=== PATIENT | female | born 1945 | race Caucasian/White ===

== ENCOUNTER → 2024-04-12 08:25 | Outpatient (CLI) | payer OTHER, SELFPAY ==
[2024-04-12 09:56] LABS: Alanine Aminotransferase 16 IU/L (<35); Albumin 4.2 g/dL (3.5-5.0); Albumin Globulin Ratio 1.9 (1.0-2.8); Alkaline Phosphatase 74 U/L (38-126); Aspartate Aminotransferase 25 IU/L (14-36); BUN Creatinine Ratio 26.9 (6-22); Blood Urea Nitrogen 18 mg/dL (7-17); Calcium 9.5 mg/dL (8.4-10.2); Carbon Dioxide 31 mmol/L (22-32); Chloride 96 mmol/L (98-107); Cholesterol 210 mg/dL (140-199); Estimated Glomerular Filt Rate > 60 mL/min (>60); Globulin 2.2 g/dL (1.7-4.1); Glucose 106 mg/dL (80-110); HDL Cholesterol 96 mg/dL (40-60); HEMOLYSIS < 15 (0-50); LDL Cholesterol Calculated 100 mg/dL (<100); Potassium 4.6 mmol/L (3.4-5.1); Sodium 131 mmol/L (137-145); Total Protein 6.4 g/dL (6.3-8.2); Triglycerides 69 mg/dL (35-150)
== END ==
PROVIDERS: PCP Student in an Organized Health Care Education/Training Program; Referring Provider Student in an Organized Health Care Education/Training Program; Visit Provider Student in an Organized Health Care Education/Training Program
DX: I10 Essential (primary) hypertension (principal); H35.30 Unspecified macular degeneration
CPT/HCPCS: 36415; 80053; 80061

== ENCOUNTER → 2024-05-15 15:34 | Outpatient (CLI) | payer OTHER, SELFPAY ==
[2024-05-17 11:36] LABS: Fecal Immunochemical Test Negative (Negative)
== END ==
PROVIDERS: PCP Student in an Organized Health Care Education/Training Program; Referring Provider Student in an Organized Health Care Education/Training Program; Visit Provider Student in an Organized Health Care Education/Training Program
DX: Z12.11 Encounter for screening for malignant neoplasm of colon (principal); I10 Essential (primary) hypertension
CPT/HCPCS: 82274

== ENCOUNTER → 2024-09-27 10:57 | Outpatient (CLI) | payer OTHER, SELFPAY ==
--- NOTE | 2024-09-27 10:58 | DI.MG.S_ITS ---
MM screening mammo BI: 09/27/2024. BI-RADS: 1 CLINICAL: 79-year old female for bilateral screening mammogram. Tyrer-Cuzick lifetime risk of 2.1%. Current reported family history of breast cancer: mother. The patient had a prior right breast biopsy. PRIOR EXAMS: 07/04/2023, 05/03/2022, 08/19/2020. MAMMOGRAPHY TECHNIQUE: 2D and 3D (tomosynthesis) digital mammographic views obtained, with additional images as needed for full coverage. Current study was also evaluated with a Computer Aided Detection (CAD) system. DENSITY C. The breasts are heterogeneously dense, which may obscure small masses. MAMMOGRAPHY FINDINGS Bilateral: No suspicious mass, asymmetry, microcalcification, or other abnormality seen. No significant change from comparison. IMPRESSION: * No evidence of malignancy. RECOMMENDATIONS Bilateral * Annual screening mammography. OVERALL ASSESSMENT CATEGORY BI-RADS-1: Negative. The [employer] recommends annual screening mammography beginning at age 40 for women with average risk of breast cancer. ELECTRONICALLY SIGNED: Emmy Lawson M.D. on 09/27/2024 at 06:23:00 PM PT Interpreting Station ID: [id number]
== END ==
PROVIDERS: PCP Student in an Organized Health Care Education/Training Program; Referring Provider Family Medicine; Visit Provider Family Medicine
DX: Z12.31 Encounter for screening mammogram for malignant neoplasm of breast (principal); R92.333 Mammographic heterogeneous density, bilateral breasts; Z80.3 Family history of malignant neoplasm of breast
CPT/HCPCS: 77063; 77067

== ENCOUNTER → 2024-10-03 16:43 | Outpatient (CLI) | payer OTHER, SELFPAY | LOC: LAB 16:44 | PROVIDERS: PCP Student in an Organized Health Care Education/Training Program; Visit Provider Family Medicine | DX: R35.0 Frequency of micturition (principal) | CPT/HCPCS: 87086 ==

== ENCOUNTER → 2024-12-04 13:04 | Outpatient (CLI) | payer OTHER, SELFPAY ==
[2024-12-04 13:39] LABS: Add Manual Diff / Slide Review NO; Basophils Absolute Auto 0 /uL (0-100); Eosinophils Absolute Auto 100 /uL (0-450); Eosinophils Percent Auto 1.7 % (2-4); Hematocrit 37.3 % (36-46); Lymphocytes Absolute Auto 1100 /uL (1100-4500); Lymphocytes Percent Auto 25.4 % (25-40); Mean Corpuscular HGB Conc 34.7 % (30-36); Mean Corpuscular Hemoglobin 31.6 PG (26-34); Mean Corpuscular Volume 90.9 fL (80-100); Monocytes Absolute Auto 300 /uL (0-900); Monocytes Percent Auto 6.9 % (3-14); Neutrophils Absolute Auto 2700 /uL (1500-7000); Platelet Count 242 X10^3/uL (150-400); Red Blood Cell Count 4.11 X10^6/uL (4.0-5.2); White Blood Cell Count 4.2 X10^3/uL (4.5-11.0)
[2024-12-04 13:57] LABS: Alanine Aminotransferase 17 IU/L (<35); Albumin 4.3 g/dL (3.5-5.0); Alkaline Phosphatase 74 U/L (38-126); Aspartate Aminotransferase 23 IU/L (14-36); Blood Urea Nitrogen 25 mg/dL (7-17); Calcium 9.2 mg/dL (8.4-10.2); Carbon Dioxide 26 mmol/L (22-32); Chloride 98 mmol/L (98-107); Estimated Glomerular Filt Rate > 60 mL/min (>60); Globulin 2.1 g/dL (1.7-4.1); Glucose 137 mg/dL (70-99); HEMOLYSIS < 15 (0-50); Potassium 4.5 mmol/L (3.4-5.1); Sodium 132 mmol/L (137-145); Total Protein 6.4 g/dL (6.3-8.2)
[2024-12-04 14:32] LABS: Erythrocyte Sedimentation Rate 6 MM/HR (0-20)
[2024-12-04 17:04] LABS: Hepatitis B Surface Antigen NEGATIVE s/c (NEGATIVE)
[2024-12-04 17:46] LABS: Hep C Virus Ab w/Reflex Quant NEGATIVE s/c (NEGATIVE)
[2024-12-05 23:36] LABS: Hepatitis B Core AB w/Reflex Negative (Negative)
== END ==
PROVIDERS: PCP Student in an Organized Health Care Education/Training Program; Referring Provider Student in an Organized Health Care Education/Training Program; Visit Provider Internal Medicine
DX: L50.8 Other urticaria (principal)
CPT/HCPCS: 36415; 80053; 83520; 84155; 84165; 84442; 85025; 85651; 86038; 86376; 86704; 86803; 87340

== ENCOUNTER → 2025-04-16 10:17 | Outpatient (CLI) | payer OTHER, SELFPAY ==
--- NOTE | 2025-04-16 10:19 | DI.RAD.S_ITS ---
PROCEDURE: XR HIP W PEL IF DONE LT 2V INDICATIONS: left hip pain TECHNIQUE: 2 views of the hip were acquired. COMPARISON: None. 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 Subchondral lucencies are seen around the left hip joint, probably subchondral cysts versus sequelae of prior erosions. No displaced fracture or dislocation. Lumbosacral degenerative changes also present. No suspicious soft tissue calcifications. If there is high concern for further derangement, consider MRI evaluation. Dictated by: Agustin Mcpherson M.D. on 04/16/2025 at 12:34 Approved by: Agustin Mcpherson M.D. on 04/16/2025 at 12:35
--- NOTE | 2025-04-16 10:19 | DI.RAD.S_ITS ---
PROCEDURE: XR SHOULDER LT MIN 2V INDICATIONS: left shoulder pain-limited movement of shoulder TECHNIQUE: 3 views of the shoulder were acquired. COMPARISON: None. 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 No suspicious soft tissue calcifications. If there is high concern for further derangement, consider MRI evaluation. Pulmonary nodules are present measuring up to 7 mm in the left upper lung. Chest CT follow-up is recommended. These could represent calcified granulomas versus soft tissue nodules. This exam was marked in PACS for communication Dictated by: Agustin Mcpherson M.D. on 04/16/2025 at 12:35 Approved by: Agustin Mcpherson M.D. on 04/16/2025 at 12:37
== END ==
PROVIDERS: PCP Student in an Organized Health Care Education/Training Program; Referring Provider Student in an Organized Health Care Education/Training Program; Visit Provider Student in an Organized Health Care Education/Training Program
DX: M25.552 Pain in left hip (principal); M25.512 Pain in left shoulder; R29.898 Other symptoms and signs involving the musculoskeletal system; M47.817 Spondylosis without myelopathy or radiculopathy, lumbosacral region; R91.8 Other nonspecific abnormal finding of lung field
CPT/HCPCS: 73030; 73502

== ENCOUNTER → 2025-04-25 13:08 | Outpatient (CLI) | payer OTHER, SELFPAY ==
--- NOTE | 2025-04-25 13:13 | DI.CT.S_ITS ---
PROCEDURE: CT CHEST WO CON INDICATIONS: lung nodule TECHNIQUE: Noncontrast 5 mm thick sections acquired from the pulmonary apices to the posterior costophrenic angles. 1 mm lung window, 5 mm thick coronal and sagittal and 7 mm axial MIP reformats were then acquired. For radiation dose reduction, the following was used: automated exposure control, adjustment of mA and/or kV according to patient size. COMPARISON: None. FINDINGS: Image quality: Diagnostic. Lower Neck: No enlarged lymph nodes. Thyroid: No thyroid nodules which require sonographic follow up, per consensus guidelines. Axillae: No enlarged lymph nodes. Chest Wall: Unremarkable. Bones: Degenerative changes of the thoracic spine with exaggerated kyphosis. Lungs and Pleura: No pneumothorax or pleural effusions. Numerous bilateral calcified granulomas , a few of which corresponds to previously seen nodules on radiographs of the shoulder dated 04/16/2025. No suspicious pulmonary nodules requiring follow-up. Heart: Heart size is normal. No pericardial effusion. Thoracic Vessels: The aorta and pulmonary arteries demonstrate normal size. Mediastinum and Sunitha: Calcified mediastinal and hilar lymph nodes. Esophagus: No wall thickening. Possible small hiatal hernia. Upper Abdomen: Numerous punctate calcifications in the liver and spleen. Visualized upper abdomen solid organs and bowel loops otherwise appear normal. IMPRESSION: Numerous bilateral calcified granulomas , a few of which corresponds to previously seen nodules on radiographs of the shoulder dated 04/16/2025. No suspicious pulmonary nodules requiring follow-up. Calcified mediastinal and hilar lymph nodes, as well as numerous punctate calcifications in the liver and spleen, also indicative of prior granulomatous infection. Dictated by: Mike Verde M.D. on 04/27/2025 at 23:13 Approved by: Mike Verde M.D. on 04/27/2025 at 23:19
== END ==
PROVIDERS: PCP Student in an Organized Health Care Education/Training Program; Referring Provider Family Medicine; Visit Provider Family Medicine
DX: R91.1 Solitary pulmonary nodule (principal); J98.4 Other disorders of lung
CPT/HCPCS: 71250